=== PATIENT | female | born 1970 | race Caucasian/White ===

== ENCOUNTER → 2019-11-26 | Outpatient (CLI) | payer BC | LOC: GMAE 17:28 | PROVIDERS: ATTEND Family Medicine | DX: M79.10 Myalgia, unspecified site (principal); M25.531 Pain in right wrist ==

== ENCOUNTER → 2020-12-12 | Outpatient (CLI) | payer BC | LOC: GMAE 11:39 | PROVIDERS: ATTEND Family Medicine | DX: R53.82 Chronic fatigue, unspecified (principal); E78.5 Hyperlipidemia, unspecified ==